=== PATIENT | male | born 1955 | race Caucasian/White ===

== ENCOUNTER 2024-02-07 10:31 | Day surgery (SDC) | payer BC, MEDICARE ==
[2024-02-07] MEDS: IV FLUID CONTINUATION 1,000 ML IV ONE (10:56)
[2024-02-07 11:01] VITALS: TEMP 97.5
[2024-02-07] MEDS ORDERED: LIDOCAINE 1% (10MG/ML) FOR IV START INTRADERMA PRN (11:07)
[2024-02-07] MEDS: LACTATED RINGERS 1,000 ML IV SCH (11:20)
[2024-02-07] MEDS ORDERED: PROPOFOL 10 MG/ML 20 ML VIAL IV ONE (11:43)
--- NOTE | 2024-02-07 11:57 | P.PCN ---
Date of Procedure: 02/07/24 Procedure(s) Performed: BRIEF HISTORY: Patient is a 68-year-old pleasant white male scheduled for an elective colonoscopy as a part of evaluation by history of colon polyps. Last colonoscopy was 6 years ago. PROCEDURE PERFORMED: Colonoscopy. PREOPERATIVE DIAGNOSIS: History of colon polyps. IV sedation per Anesthesia. PROCEDURE: After informed consent was obtained, the patient, was brought into the endoscopy unit. IV sedation was administered by Anesthesia under continuous monitoring. Digital rectal examination was normal. Initially the Olympus CF-160 flexible video colonoscope was then inserted in the rectum, gradually advanced into the cecum without any difficulty. Careful examination was performed as the scope was gradually being withdrawn. Ileocecal valve and the appendiceal orifice were visualized and appeared normal. Prep was excellent. Mucosa of the cecum, ascending colon, transverse colon, descending colon, sigmoid colon, and rectum appeared normal. Scattered sigmoid diverticulosis. Retroflexion was performed in the rectum and no lesions were seen. The patient tolerated the procedure well. IMPRESSION: Normal-appearing colon from rectum to cecum with no evidence of colorectal neoplasia Sigmoid diverticula RECOMMENDATIONS: Findings of this examination were discussed with the patient as well as his family. He was advised to have repeat screening colonoscopy in 10 years..
[2024-02-07 12:07] VITALS: RESP 18
[2024-02-07 13:15] VITALS: BP 120/72; PULSE 77
== END 2024-02-07 12:58 | disposition home or self-care (01) ==
LOC: ORWHC2ENDO 10:31
PROVIDERS: ATTEND Internal Medicine Gastroenterology
CPT/HCPCS: 45378

== ENCOUNTER → 2024-09-02 | Outpatient (CLI) | payer MEDICARE ==
--- NOTE | 2024-09-02 11:44 | MR ---
EXAMINATION TYPE: MR Prostate wo/w con DATE OF EXAM: 09/02/2024 9:45 AM COMPARISON: None. CLINICAL INDICATION: Male, 69 years old with history of R97.20 ELEVATED PROSTATE SPECIFIC ANTIGEN [PS A]; Elevated PSA. TECHNIQUE: Multi-planar, multi-sequence imaging of the pelvis is performed prior to and following the uncomplicated administration of bolus intravenous gadolinium. IV Contrast: 10 mL Gadobutrol Interpretive Criteria: PI-RADS v2.1 SERUM PSA: 06/2024=6.7 07/2024=7.92 SURGICAL PATHOLOGY: No data available. FINDINGS: Prostatic dimensions: 4.7 x 5.0 x 2.9 cm. "Bullet" Volume:44.60 (PSA density=0.18 ng/mL/mL) CENTRAL GLAND (Central and Transition Zones/CZ+TZ): Multiple bilateral, heterogenous appearing hypertrophic stromal nodules, without suspicious lesion. M edian lobe hypertrophy with protrusion into the base of the bladder. (PI-RADS 2) PERIPHERAL ZONE (PZ): Left lateral peripheral zone ID are very low ADC low T2 signal area measuring 9 x 5 mm in the mid gla nd (PI-RADS 4) SEMINAL VESICLES (SV): Symmetric and unremarkable. PERIPROSTATIC TISSUES: Unremarkable. LYMPH NODES: No enlarged pelvic lymph node. REMAINING PELVIS: Bladder wall is within normal limits given distention. No abnormal free or organized intrapelvic fluid collection. No pathologic bowel dilation or mural thickening. Bilateral fat containing inguinal hernias. OSSEOUS STRUCTURES: Diffuse heterogenous signal with lobe bone marrow signal present. Curvilinear sclerotic low T1 minus the femoral heads. The morphology of femoral heads is rather smooth and limited evaluation. IMPRESSION: 1. PI-RADS 4 Lesion in the left lateral peripheral zone, mid gland measuring 9 x 5 mm. 2. Mild BPH, estimated gland volume 44.60 (PSA density=0.18 ng/mL/mL) 3. No suspicious osseous lesion. No lymphadenopathy. No evidence of prostate adenocarcinoma involving the periprostatic tissues. 4. Bilateral avascular necrosis of the femoral heads, no evidence for subchondral collapse at this ti me. 5. Diffuse red marrow conversion can be seen in the setting of tobacco abuse, anemia, or myeloprolife rative disorder. 6. Bilateral fat-containing inguinal hernias. [facility], Workstation: [id number], 09/02/2024 11:42 AM
== END | disposition home or self-care (01) ==
LOC: RADMRIMAIN 08:27
PROVIDERS: ATTEND Urology
DX: K80.20 Calculus of gallbladder without cholecystitis without obstruction (principal); N40.0 Benign prostatic hyperplasia without lower urinary tract symptoms; R97.20 Elevated prostate specific antigen [PSA]; K40.20 Bilateral inguinal hernia, without obstruction or gangrene, not specified as recurrent
CPT/HCPCS: 72197; A9585

== ENCOUNTER → 2024-10-16 | Outpatient (CLI) | payer MEDICARE ==
[2024-10-16 15:08] LABS: Basophils # (A) 0.04 X 10*3/uL (0.00-0.10); Basophils % (A) 0.5 %; Eosinophils # (A) 0.15 X 10*3/uL (0.04-0.35); Eosinophils % (A) 1.8 %; HCT 46.4 % (39.6-50.0); Lymphocytes # (A) 2.51 X 10*3/uL (0.90-5.00); Lymphocytes % (A) 29.6 %; MCH 30.2 pg (27.0-32.0); MCHC 32.3 g/dL (32.0-37.0); MCV 93.5 FL (80.0-97.0); Mean Platelet Volume 10.4 FL (9.5-12.2); Monocytes # (A) 0.76 X 10*3/uL (0.20-1.00); NRBC Per 100 WBC 0 X 10*3/uL (0.00-0.01); Neutrophils # (A) 5.01 X 10*3/uL (1.80-7.70); Neutrophils % (A) 58.9 %; Platelet Count 294 X 10*3/uL (140-440); RBC 4.96 X 10*6/uL (4.40-5.60); RDW 12.7 % (11.5-14.5); WBC 8.49 X 10*3/uL (4.50-10.00)
[2024-10-16 15:21] LABS: BUN/Creat Ratio 17.22 Ratio (12.00-20.00); Blood Urea Nitrogen 15.5 mg/dL (9.0-27.0); Calcium 9.1 mg/dL (8.7-10.3); Chloride 102 mmol/L (96-109); Glucose 117 mg/dL (70-110); Sodium 139 mmol/L (135-145)
== END | disposition home or self-care (01) ==
LOC: LABPAT 09:33
PROVIDERS: ATTEND Urology
DX: R97.20 Elevated prostate specific antigen [PSA] (principal)
CPT/HCPCS: 80048; 85025

== ENCOUNTER 2024-10-23 12:59 | Day surgery (SDC) | payer MEDICARE ==
[2024-10-21 12:43] VITALS: BMI 34.9
--- NOTE | 2024-10-22 21:44 | P.GSHP ---
History of Present Illness H&P Date: 10/22/24 Chief Complaint: Elevated PSA level The patient is a 69-year-old white male whose PSA level recently increased to 6.7. Repeat PSA level was 7.92. CHRISTOPHER revealed the prostate to be palpably normal. He has no family history of prostate cancer. Prostate MRI revealed a prostate volume of 44.60 cc with a PI-RADS 4 lesion within the left peripheral zone. - Genitourinary (Male) Genitourinary: Reports nocturia Past Medical History Additional Past Medical History / Comment(s): hypoglycemic. Hx infected lt shoulder r/t cyst- had PICC line for ABX. History of Any Multi-Drug Resistant Organisms: None Reported Past Surgical History: Back Surgery, Joint Replacement, Orthopedic Surgery Additional Past Surgical History / Comment(s): gibson foot surg; gibson knee replacement, gibson shoulder surg, cyst left shoulder removed-became infected-had PICC line for ABX therapy. Past Anesthesia/Blood Transfusion Reactions: No Reported Reaction Additional Past Anesthesia/Blood Transfusion Reaction / Comment(s): No hx of blood transfusion to date. Smoking Status: Current every day smoker - Past Family History Mother Family Medical History: Cancer Additional Family Medical History / Comment(s): bone, brain cancer Sister(s) Family Medical History: Cancer Additional Family Medical History / Comment(s): Breast cancer Medications and Allergies Home Medications Medication Instructions Recorded Confirmed Type Multivitamins, Thera [Multivitamin 1 tab PO DAILY 02/05/24 10/21/24 History (formulary)] Naproxen Sodium [Aleve] 220 mg PO DAILY 02/05/24 10/21/24 History Vitamin B 1 dose PO DAILY 02/05/24 10/21/24 History Vitamin C 1 dose PO DAILY 02/05/24 10/21/24 History Allergy 1 dose PO QAM 10/21/24 10/21/24 History Atorvastatin [Lipitor] 20 mg PO HS 10/21/24 10/21/24 History Allergies Allergy/AdvReac Type Severity Reaction Status Date / Time No Known Allergies Allergy Verified 10/21/24 12:24 Surgical - Exam - General well developed, well nourished, no distress - Respiratory normal respiratory effort - Genitourinary normal penis with no external lesions, testicles non-tender - Rectum Rectum: normal sphincter tone, no masses, other (Prostate normal size and consistency) - Psychiatric oriented to time, oriented to person, oriented to place, speech is normal, memory intact Assessment and Plan (1) Elevated prostate specific antigen [PSA] Status: Acute Code(s): R97.20 - ELEVATED PROSTATE SPECIFIC ANTIGEN [PSA] SNOMED Code(s): 119929516 Plan: The patient will undergo MRI-Ultrasound fusion transrectal biopsies of the prostate. The procedure has been reviewed in detail with the patient. He has been made aware of potential risks, which include anesthesia, bleeding, and infection. He is also aware that a negative biopsy does not completely rule out prostate cancer.
[2024-10-23 14:03] VITALS: RESP 18; TEMP 98.8
[2024-10-23] MEDS: LACTATED RINGERS 1,000 ML IV SCH (14:13)
[2024-10-23] MEDS: IV FLUID CONTINUATION 1,000 ML IV ONE (14:15)
[2024-10-23 14:20] LABS: Glucose,Whole Blood 93 mg/dL (70-110)
[2024-10-23] MEDS: GENTAMICIN 40 MG/ML 2 ML VIAL IM PRN (14:24)
[2024-10-23] MEDS ORDERED: PROPOFOL 10 MG/ML 20 ML VIAL IV ONE (15:14)
[2024-10-23] MEDS: SODIUM CHLORIDE 0.9% 1,000 ML IV ONE (15:17)
[2024-10-23 15:59] VITALS: BP 157/90; PULSE 73
--- NOTE | 2024-10-29 15:14 | P.OP ---
Date of Procedure: 10/23/24 Preoperative Diagnosis: Elevated PSA level Postoperative Diagnosis: Same Procedure(s) Performed: MRI fusion biopsies of the prostate Anesthesia: MAC Surgeon: Leonel Strong Estimated Blood Loss (ml): 5 IV fluids (ml): 300 Condition: stable Disposition: PACU Indications for Procedure: The patient is a 69-year-old white male whose PSA level recently increased to 6.7. Repeat PSA level was 7.92. CHRISTOPHER revealed the prostate to be palpably normal. He has no family history of prostate cancer. Prostate MRI revealed a prostate volume of 44.60 cc with a PI-RADS 4 lesion within the left peripheral zone. He now comes for MRI fusion biopsies of the prostate. Description of Procedure: The patient was taken to the operating room and placed in the left lateral decubitus position. CHRISTOPHER revealed the prostate to be moderately enlarged but smooth. The [employer] transrectal ultrasound probe was placed intrarectally. It was then placed within the stand of the [employer] MRI/TRUS Fusion for Prostate Biopsy system. The prostate was imaged in both the axial and sagittal planes. Using the Biopty gun, 3 biopsies were obtained from the target lesion. The remaining 12 biopsies of the peripheral zone were obtained utilizing a standard template. Once the procedure was completed, the ultrasound probe was removed. The patient tolerated the procedure well was taken to the recovery room stable condition.
== END 2024-10-23 16:16 | disposition home or self-care (01) ==
LOC: OR 12:59
PROVIDERS: ATTEND Urology
DX: C61 Malignant neoplasm of prostate (principal); E78.5 Hyperlipidemia, unspecified; F17.200 Nicotine dependence, unspecified, uncomplicated; Z79.899 Other long term (current) drug therapy
CPT/HCPCS: 88305; 55700; J1580; J2704